=== PATIENT | male | born 1985 | race Caucasian/White ===

== ENCOUNTER → 2019-10-27 | Outpatient (CLI) | payer BC, OTHER ==
[~2019-10-27] MED LIST: IBUPROFEN 800800 M1 PO; NOHOMEMEDICATIONS; PREDNISONE 20 M20 MG PO; TRAMADOL 50 MG50 MG PO; VENTOLIN HFA 1818 GM INH
== END ==
LOC: RAD 10:48
DX: M54.12 Radiculopathy, cervical region (principal)

== ENCOUNTER → 2020-11-11 | Outpatient (CLI) | payer BC, OTHER | LOC: EDSTATUS 09:15 → MRI 09:27 | PROVIDERS: ATTEND Nurse Practitioner | DX: M48.061 Spinal stenosis, lumbar region without neurogenic claudication (principal); M12.88 Other specific arthropathies, not elsewhere classified, other specified site; R10.32 Left lower quadrant pain; R10.31 Right lower quadrant pain ==